=== PATIENT | female | born 1965 | race Caucasian/White ===

== ENCOUNTER 2018-04-23 12:54 | Emergency (ER) | payer OTHER ==
[2018-04-23] MEDS ORDERED: ONDANSETRON 4 MG TAB.RAPDIS PO ONE (13:25)
--- NOTE | 2018-04-23 13:25 | ER Document Report ---
ED Medical Screen (RME) - General Chief Complaint: Constipation Stated Complaint: RECTAL BLEEDING Time Seen by Provider: 04/23/18 13:18 Mode of Arrival: Ambulatory Information source: Patient Notes: 52-year-old female with a family history significant for colon cancer presents to the emergency room with left lower quadrant abdominal pain associated with several days of gross rectal bleeding. She does report nausea. TRAVEL OUTSIDE OF THE [place] IN LAST 30 DAYS: No - Related Data Allergies/Adverse Reactions: No Known Allergies Allergy (Verified 04/23/18 12:54) Past Medical History - Past Medical History Cardiac Medical History: Denies: Hx Coronary Artery Disease, Hx Heart Attack Comment Only: Hx Hypertension - Low Pulmonary Medical History: Reports: Hx Pneumonia - 2007 Denies: Hx Asthma, Hx Bronchitis, Hx COPD, Hx Tuberculosis Neurological Medical History: Reports: Hx Migraine. Denies: Hx Cerebrovascular Accident, Hx Seizures Malignancy Medical History: Reports: Hx Cervical Cancer - 1993 2004 GI Medical History: Reports: Hx Gastroesophageal Reflux Disease - nexium, Hx Irritable Bowel, Hx Liver Failure - aug 20, Hx Ulcer - bleeding ulcer 30 yr ago. Denies: Hx Pancreatitis Musculoskeltal Medical History: Denies Hx Arthritis Past Surgical History: Reports: Hx Breast Surgery, Hx Cholecystectomy - lap, Hx Hysterectomy - oophorectomy L, Hx Thyroid Surgery - biopsy - Immunizations Hx Diphtheria, Pertussis, Tetanus Vaccination: Yes Physical Exam - Vital signs Vitals: Temp Pulse Resp BP Pulse Ox 98.6 F 92 16 133/85 H 98 04/23/18 12:57 04/23/18 12:57 04/23/18 12:57 04/23/18 12:57 04/23/18 12:57 Course - Vital Signs Vital signs: Temp Pulse Resp BP Pulse Ox 98.6 F 92 16 133/85 H 98 04/23/18 12:57 04/23/18 12:57 04/23/18 12:57 04/23/18 12:57 04/23/18 12:57 Doctor's Discharge - Discharge Referrals: SHAHLA ZAVALA MD [Primary Care Provider] - Follow up as needed
[2018-04-23 14:01] LABS: ABSOLUTE EOSINOPHILS # (AUTO) 0.1 10^3/uL (0.0-0.6); ABSOLUTE MONOCYTES (AUTO) 0.5 10^3/uL (0.1-1.4); ABSOLUTE NEUT (AUTO) 5.6 10^3/uL (1.7-8.2); BASOPHILS % (AUTO) 0.4 % (0-2); EOSINOPHILS % (AUTO) 1.2 % (0-6); HEMATOCRIT 40.5 % (36.0-47.0); HEMOGLOBIN 14.2 g/dL (12.0-15.5); LYMPHOCYTES % (AUTO) 32.1 % (13-45); MEAN CORPUSCULAR HEMOGLOBIN 32.2 pg (27.0-33.4); MEAN CORPUSCULAR VOLUME 92 fl (80-97); MONOCYTES % (AUTO) 5.7 % (3-13); PLATELET COUNT 295 10^3/uL (150-450); RED BLOOD COUNT 4.41 10^6/uL (3.72-5.28); SEGMENTED NEUTROPHILS % (AUTO) 60.6 % (42-78); TOTAL CELLS COUNTED % (AUTO) 100 %; WHITE BLOOD COUNT 9.3 10^3/uL (4.0-10.5)
[2018-04-23 14:27] LABS: ALANINE AMINOTRANSFERASE 21 U/L (9-52); ALBUMIN 4.3 g/dL (3.5-5.0); ALKALINE PHOSPHATASE 79 U/L (38-126); ANION GAP 8 (5-19); ASPARTATE AMINO TRANSFERASE 14 U/L (14-36); BILIRUBIN,DIRECT 0.5 mg/dL (0.0-0.4); BILIRUBIN,TOTAL 0.5 mg/dL (0.2-1.3); BLOOD UREA NITROGEN 6 mg/dL (7-20); CALCIUM 9.4 mg/dL (8.4-10.2); CARBON DIOXIDE 26 mmol/L (22-30); CHLORIDE 107 mmol/L (98-107); GLUCOSE 100 mg/dL (75-110); POTASSIUM 4.2 mmol/L (3.6-5.0); SODIUM 140.7 mmol/L (137-145); TOTAL PROTEIN 7.5 g/dL (6.3-8.2)
[2018-04-23] MEDS ORDERED: NORMAL SALINE 1000 ML 1,000 ML IV ONE (14:47)
[2018-04-23] MEDS ORDERED: MORPHINE SULFATE 10 MG/ML INJ IV ONE ×2 (14:47→17:24)
[2018-04-23 16:40] LABS: APPEARANCE,URINE CLEAR; BILIRUBIN,URINE NEGATIVE (NEGATIVE); COLOR,URINE YELLOW; GLUCOSE, URINE NEGATIVE (NEGATIVE); KETONES,URINE NEGATIVE (NEGATIVE); LEUKOCYTE ESTERASE,URINE NEGATIVE (NEGATIVE); NITRITE,URINE NEGATIVE (NEGATIVE); PROTEIN,URINE NEGATIVE (NEGATIVE); URINE SPECIFIC GRAVITY 1.008; UROBILINOGEN,URINE NEGATIVE mg/dL (<2.0)
--- NOTE | 2018-04-23 16:53 | RADIOLOGY REPORT (SQ) ---
EXAM DESCRIPTION: CT ABD/PELVIS WITH IV ORAL COMPLETED DATE/TIME: 04/23/2018 4:35 pm REASON FOR STUDY: LLQ pain COMPARISON: 05/09/2014 TECHNIQUE: CT scan of the abdomen and pelvis performed using helical scanning technique with dynamic intravenous contrast injection. No oral contrast. Images reviewed with lung, soft tissue, and bone w indows. Reconstructed coronal and sagittal MPR images reviewed. Delayed images for evaluation of the urinary system also acquired. All images stored on PACS. All CT scanners at this facility use dose modulation, iterative reconstruction, and/or weight based d osing when appropriate to reduce radiation dose to as low as reasonably achievable (ALARA). [facility]: Dose Right [facility]: CareDose [facility]: Dose Right [facility]: Teradose 4D [facility]: [employer] CONTRAST TYPE AND DOSE: contrast/concentration: Isovue 350.00 mg/ml; Total Contrast Delivered: 96.0 ml; Total Saline Delivered: 71.0 ml RENAL FUNCTION: GFR > 60. RADIATION DOSE: CT Rad equipment meets quality standard of care and radiation dose reduction techniq ues were employed. CTDIvol: 12.0 - 15.7 mGy. DLP: 1451 mGy-cm.. LIMITATIONS: None. FINDINGS: LOWER CHEST: No significant findings. LIVER: Normal size. No enhancing masses. Mildly dilated ducts, stable. SPLEEN: Normal size. No focal lesions. PANCREAS: No masses identified. No significant calcifications. No adjacent inflammation or peripancre atic fluid collections. Pancreatic duct not dilated. GALLBLADDER: Surgically absent. ADRENAL GLANDS: No significant masses. RIGHT KIDNEY AND URETER: No cysts identified. No solid masses identified. No calcified stones. No hyd ronephrosis or hydroureter. LEFT KIDNEY AND URETER: No cysts identified. No solid masses identified. No calcified stones. No hydr onephrosis or hydroureter. AORTA AND VESSELS: No aneurysm. No dissection. Renal arteries, SMA, celiac without significant stenos is. RETROPERITONEUM: No bulky retroperitoneal adenopathy. BOWEL AND PERITONEAL CAVITY: No obstruction. Wall thickening in the descending colon -sigmoid juncti on. No fluid collection. APPENDIX: Normal. PELVIS: No mass. No free fluid. Unremarkable bladder. ABDOMINAL WALL: No masses. No hernias. BONES: No acute findings. OTHER: No other significant finding. IMPRESSION: Wall thickening in the descending colon -sigmoid junction. No fluid collection. TECHNICAL DOCUMENTATION: JOB ID: [id number] [place]-72 Quality ID # [id number]: Final reports with documentation of one or more dose reduction techniques (e.g., Au tomated exposure control, adjustment of the mA and/or kV according to patient size, use of iterative reconstruction technique) 2010 [employer]- All Rights Reserved Reading location - IP/workstation name: [email or web address]
[2018-04-23] MEDS ORDERED: METRONIDAZOLE 500 MG TABLET PO ONE (17:24)
[2018-04-23] MEDS ORDERED: KETOROLAC TROMETHAMINE INJ/PF 30 MG/1 ML SDV IV ONE (17:24)
[2018-04-23] MEDS ORDERED: CIPROFLOXACIN HCL 500 MG TABLET PO ONE (17:24)
--- NOTE | 2018-04-23 18:39 | ER Document Report ---
ED General - General Chief Complaint: Constipation Stated Complaint: RECTAL BLEEDING Time Seen by Provider: 04/23/18 13:18 Mode of Arrival: Ambulatory TRAVEL OUTSIDE OF THE [place] IN LAST 30 DAYS: No - HPI Patient complains to provider of: Rectal bleeding left lower quadrant abdominal pain Notes: Patient coming for left lower quadrant abdominal pain and issues constipation. Patient states last bowel movement was approximately 8 days ago with a hard bowel movements patient states since that time is having bright red blood per rectum. Patient is currently worried about colon cancer is that both her grandmothers did have colon cancer. Patient denies any other bowel history states she has had a gallbladder and appendix removed. Patient denies any fevers chills nausea vomiting or diarrhea. Patient denies any trauma to the left lower quadrant of her abdomen. Patient denies any flank pain denies any history of kidney stones. - Related Data Allergies/Adverse Reactions: No Known Allergies Allergy (Verified 04/23/18 12:54) Past Medical History - General Information source: Patient - Social History Smoking Status: Unknown if Ever Smoked Family History: None Patient has suicidal ideation: No Patient has homicidal ideation: No - Past Medical History Cardiac Medical History: Denies: Hx Coronary Artery Disease, Hx Heart Attack Comment Only: Hx Hypertension - Low Pulmonary Medical History: Reports: Hx Pneumonia - 2007 Denies: Hx Asthma, Hx Bronchitis, Hx COPD, Hx Tuberculosis Neurological Medical History: Reports: Hx Migraine. Denies: Hx Cerebrovascular Accident, Hx Seizures Renal/ Medical History: Denies: Hx Peritoneal Dialysis Malignancy Medical History: Reports: Hx Cervical Cancer - 1993 2004 GI Medical History: Reports: Hx Gastroesophageal Reflux Disease - nexium, Hx Irritable Bowel, Hx Liver Failure - aug 20, Hx Ulcer - bleeding ulcer 30 yr ago. Denies: Hx Pancreatitis Musculoskeletal Medical History: Denies Hx Arthritis Past Surgical History: Reports: Hx Breast Surgery, Hx Cholecystectomy - lap, Hx Hysterectomy - oophorectomy L, Hx Thyroid Surgery - biopsy - Immunizations Hx Diphtheria, Pertussis, Tetanus Vaccination: Yes Review of Systems - Review of Systems Constitutional: No symptoms reported EENT: No symptoms reported Cardiovascular: No symptoms reported Respiratory: No symptoms reported Gastrointestinal: Abdominal pain, Rectal bleeding Genitourinary: No symptoms reported Female Genitourinary: No symptoms reported Musculoskeletal: No symptoms reported Skin: No symptoms reported Hematologic/Lymphatic: No symptoms reported Neurological/Psychological: No symptoms reported -: Yes All other systems reviewed and negative Physical Exam - Vital signs Vitals: Temp Pulse Resp BP Pulse Ox 98.6 F 92 16 133/85 H 98 04/23/18 12:57 04/23/18 12:57 04/23/18 12:57 04/23/18 12:57 04/23/18 12:57 Interpretation: Normal - General General appearance: Appears well, Alert - HEENT Head: Normocephalic, Atraumatic Eyes: Normal Pupils: PERRL - Respiratory Respiratory status: No respiratory distress Chest status: Nontender Breath sounds: Normal Chest palpation: Normal - Cardiovascular Rhythm: Regular Heart sounds: Normal auscultation Murmur: No - Abdominal Inspection: Normal Distension: No distension Bowel sounds: Normal Tenderness: Nontender Organomegaly: No organomegaly - Rectal Hemorrhoids: External Notes: No gross blood on rectal examination - Back Back: Normal, Nontender - Extremities General upper extremity: Normal inspection, Nontender, Normal color, Normal ROM , Normal temperature General lower extremity: Normal inspection, Nontender, Normal color, Normal ROM , Normal temperature, Normal weight bearing. No: Pau's sign - Neurological Neuro grossly intact: Yes Cognition: Normal Orientation: AAOx4 Neto Coma Scale Eye Opening: Spontaneous Trumann Coma Scale Verbal: Oriented Trumann Coma Scale Motor: Obeys Commands Neto Coma Scale Total: 15 Speech: Normal Motor strength normal: LUE, RUE, LLE, RLE Sensory: Normal - Psychological Associated symptoms: Normal affect, Normal mood - Skin Skin Temperature: Warm Skin Moisture: Dry Skin Color: Normal Course - Re-evaluation Re-evalutation: 04/23/18 22:29 CT scan shows thickening of the descending colon and sigmoid colon is concerning for possible colitis. Explained to the patient at this time we will treat her for infectious cause with Cipro and Flagyl patient will be given morphine for pain control Zofran for nausea control explained to the patient at length the importance of using stool softener to avoid any constipation. Explained to the patient other etiologies were in play such as inflammatory causes however at this time is that the patient has already contacted a local surgeon and apparently is already schedule follow-up for colonoscopy that we will hold off on any steroids. Patient states understanding of this hemoglobin hematocrit stable again no gross blood seen a rectal examination patient does have small hemorrhoid which could than the soft bleeding. Patient will be discharged home with diagnosis of colitis The patient presents with abdominal pain without signs of peritonitis or other life-threatening or serious etiology. The patient appears stable for discharge and has been instructed to return immediately if the symptoms worsen in any way, or in 8-12hr if not improved for re-evaluation. The patient has been instructed to return if the symptoms worsen or change in any way. - Vital Signs Vital signs: Temp Pulse Resp BP Pulse Ox 98.5 F 65 16 118/69 96 04/23/18 18:40 04/23/18 18:40 04/23/18 18:40 04/23/18 18:40 04/23/18 18:40 - Laboratory Result Diagrams: 04/23/18 13:45 04/23/18 13:45 Laboratory results interpreted by me: 04/23/18 13:45 BUN 6 L Direct Bilirubin 0.5 H Discharge - Discharge Clinical Impression: Colitis Condition: Good Disposition: HOME, SELF-CARE Instructions: Colitis, Nonspecific ([facility]) Additional Instructions: Evaluation today shows signs of bowel thickening on the left side concerning for possible colitis. We will treat this with antibiotics Cipro and Flagyl I will give you Zofran to treat any nausea that she may have oral morphine for any pain that she may have please be aware that pain medication may make you constipated. Would highly recommend she take the stool softener or an over-the- counter stool softener as directed. Please finish her antibiotics before taking the Diflucan for a yeast infection. Follow-up with your primary care physician or Dr. Vazquez as you stated. Return to the ER for any worsening of symptoms. Prescriptions: Ciprofloxacin HCl [Cipro 500 mg Tablet] 500 mg PO BID #20 tablet Docusate Sodium [Colace 100 mg Capsule] 100 mg PO BID #60 capsule Fluconazole [Diflucan] 200 mg PO ONCE PRN #1 tablet PRN Reason: Metoclopramide HCl [Reglan] 5 mg PO Q6 #30 tablet Metronidazole [Flagyl 500 mg Tablet] 500 mg PO Q6H #40 tablet Morphine Sulfate [Morphine Ir 15 Mg Tablet] 15 mg PO TID PRN #15 tablet PRN Reason: Referrals: SUE VAZQUEZ MD [ACTIVE STAFF] - Follow up as needed
[2018-04-23] MEDS ORDERED: MORPHINE SULFATE IR 15 MG TABLET PO ONE (18:40)
[2018-04-23 18:42] VITALS: BP 118/69
== END 2018-04-23 18:59 | disposition home or self-care (01) ==
LOC: ER 12:54
DX: K59.00 Constipation, unspecified (principal); R10.32 Left lower quadrant pain; K52.9 Noninfective gastroenteritis and colitis, unspecified; Z90.49 Acquired absence of other specified parts of digestive tract
CPT/HCPCS: 96376; 99284; 96361; 96374; 96375; 36415; 83690; 85025; 80053; 81001; 74177; S0119; J1885; J2270

== ENCOUNTER 2018-05-19 09:45 | Day surgery (SDC) | payer OTHER ==
[2018-05-12 12:15] LABS: HEMATOCRIT 39.6 % (36.0-47.0); HEMOGLOBIN 13.9 g/dL (12.0-15.5); MEAN CORPUSCULAR HEMOGLOBIN 32.2 pg (27.0-33.4); MEAN CORPUSCULAR HGB CONC 35.2 g/dL (32.0-36.0); MEAN CORPUSCULAR VOLUME 92 fl (80-97); PLATELET COUNT 294 10^3/uL (150-450); RED BLOOD COUNT 4.32 10^6/uL (3.72-5.28); WHITE BLOOD COUNT 5.9 10^3/uL (4.0-10.5)
[~2018-05-19 09:45] MED LIST: ACETAMINOPHEN 325 MG TABLET PO PRN; LACTATED RINGERS 1000 ML IV PRN; LIDOCAINE 0.5% INJ-PF (5 MG/ML) 50 ML SDV SUBCUT PRN
[2018-05-19] MEDS ORDERED: MIDAZOLAM 2 MG/2 ML INJ ONE (12:52)
[2018-05-19] MEDS ORDERED: PROPOFOL INJ 200 MG/20 ML VIAL IV ONE (12:52)
[2018-05-19] MEDS ORDERED: PROMETHAZINE HCL INJ 25 MG/1 ML VIAL IV PRN ×2 (13:05)
[2018-05-19] MEDS ORDERED: MEPERIDINE HCL/PF INJ 25 MG/1 ML DISP.SYRIN IV PRN (13:05)
[2018-05-19] MEDS ORDERED: DIPHENHYDRAMINE HCL 50 MG/ML VIAL IV PRN (13:05)
[2018-05-19] MEDS ORDERED: FENTANYL CITRATE INJ/PF 100 MCG/2 ML AMPUL IV PRN ×3 (13:05)
[2018-05-19] MEDS ORDERED: OXYCODONE-ACETAMINOPHEN 5-325 MG TABLET PO PRN ×3 (13:05→13:58)
--- NOTE | 2018-05-19 13:58 | Discharge Summary ---
Discharge Summary (SDC) - Discharge Final Diagnosis: Tortuous sigmoid colon Polyp of upper rectum Date of Surgery: 05/19/18 Discharge Date: 05/19/18 Condition: Stable Forms: ASU Anesthesia D/C Instruction, Discharge POC-Surgical Service Treatment or Instructions: [facility] [address] [place] [id number] Hemorrhoid or Anal Surgery Discharge Instructions 1. General Information: a. DO NOT DRIVE a car or operate dangerous machinery for 4-7 days or while taking narcotic prescription pain pills. b. DO NOT consume alcohol, tranquilizers, sleeping medications or any non- prescribed medications for 24 hours unless approved by your doctor or as long as taking narcotic prescription medications. c. DO NOT make important decisions or sign any important papers for the next 24 hours. d. Have a responsible person with you tonight. 2. Activity Restrictions: 2 weeks a. Avoid heavy lifting or straining until you feel more comfortable. b. It is fine to go for walks, up and down steps, ride in a car. 3. Treatment: a. Tomorrow morning begin warm water sitz baths (soaks) with plain water. You may do 3-4 times per day or after bowel movements to help relieve spasm and pain. Place a dry gauze or panty liner over the sight to catch drainage and blood to help keep your clothing dry. b. You may use Tucks or other medicated wipes to help clean the area as needed. c. If packing used it will pass spontaneously with bowel function. External dressings and medicated gauze should be removed before sitz baths. 4. Medications: a. Resume all normal medications unless a change is specified by your doctors. 5. Diet: a. Begin with clear liquids and if you do well you may then advance to normal foods low in fat and protein at first. Smaller portion size may be gastelum the first night. b. Acidic (orange juice, tomato), foods high in ruffage (grapes, celery, asparagus) and spicy foods should be avoided for comfort the first 2-3 weeks since they can cause more burning sensation with bowel movements. 6..Follow Up Care: a. Please call the office to schedule a follow up appointment with your doctor for 2 weeks. In the event of any postoperative problems or questions or you may call the office during business hours or the On-Call physician evenings and weekends at [facility]. [facility] I understand the instructions for my postoperative care as described above and a copy has been given to me. Patient/Significant Other Witness Date Referrals: MOHAMUD LLAMAS MD [Primary Care Provider] - SUE SHAW MD [ACTIVE STAFF] - Discharge Activity: Walk Frequently Report the Following to Your Physician Immediately: Nausea, Vomiting, Increase in Pain, Fever over 101 Degrees, Unusual Bleeding, Drainage-Foul Smelling
--- NOTE | 2018-05-19 13:59 | Operative Report ---
Operative Report PREOPERATIVE DIAGNOSIS: 1. History of diverticulitis. 2. Screen for colon rectal carcinoma POSTOPERATIVE DIAGNOSIS: Same with tortuous sigmoid colon and polyp of the upper rectum; external hemorrhoids OPERATION: 1. Total colonoscopy to the cecum. 2. Upper rectal polyp removal via cold forceps device SURGEON: SUE SHAW ANESTHESIA: LMAC TISSUE REMOVED OR ALTERED: Upper rectal polyp biopsy COMPLICATIONS: None ESTIMATED BLOOD LOSS: Scant INTRAOPERATIVE FINDINGS: See below PROCEDURE: Obtaining informed consent the patient was taken from the preoperative holding area to the main endoscopy suite where monitoring devices were attached to the patient. Plan and surgical timeout were conducted The patient was placed in the left lateral decubitus position with knees to chest. A perianal examination was performed. There was no visible or palpable anorectal pathology. Sphincter tone was felt to be normal. There were external hemorrhoids, collapsed. The flexible adult colonoscope was advanced through the anal rectal canal, all the way to the cecum. Visualization of the cecum was achieved and the ileocecal valve, the appendiceal orifice and transillumination of the anterior abdominal wall. This was an excellent study on the well-prepped bowel. The colonoscope was withdrawn slowly and methodically checked and the mucosa carefully. There was no evidence of tumor, stricture, bleeding or polyp. There were scattered diverticulosis disease of the sigmoid colon. The sigmoid colon was rather tortuous, and required a fair amount of Finesse to advance the scope through the area. There was no boris stricture or inflammation. In the upper rectum at approximately 22 cm from the anal verge was a small polyp which was removed with a cold forceps device leading was minimal. Specimen labeled as upper rectal polyp. The scope was slowly withdrawn through the anal rectal canal. Complete visualization of the rectum was achieved with photodocumentation. The scope was withdrawn to the patient's anus. The patient tolerated the procedure well and was taken to the recovery area in stable condition. Per surveillance guidelines, patient will be appropriate candidate for follow- up colonoscopy in 3 years pending results polyp biopsy.
[2018-05-19 15:52] VITALS: BP 119/67
== END 2018-05-19 14:55 | disposition home or self-care (01) ==
LOC: OROUT 09:45
PROVIDERS: ATTEND Surgery
DX: K63.5 Polyp of colon (principal); K57.30 Diverticulosis of large intestine without perforation or abscess without bleeding; K64.4 Residual hemorrhoidal skin tags; Z09 Encounter for follow-up examination after completed treatment for conditions other than malignant neoplasm; Z87.19 Personal history of other diseases of the digestive system; Z80.0 Family history of malignant neoplasm of digestive organs; F17.210 Nicotine dependence, cigarettes, uncomplicated; K21.9 Gastro-esophageal reflux disease without esophagitis; E03.9 Hypothyroidism, unspecified; G43.909 Migraine, unspecified, not intractable, without status migrainosus; Z79.899 Other long term (current) drug therapy
CPT/HCPCS: 45380; 36415; 85027; 81025; 88305 ×2; J2250; J2704; 811